=== PATIENT | male | born 1955 | race Caucasian/White ===

== ENCOUNTER → 2017-06-05 | Outpatient (CLI) | payer MEDICAID ==
[~2017-06-05] MED LIST: AMIODARONE 200200 MG PO; BISOPROLOL 5MG T5 MG PO; FUROSEMIDE40 MG PO; K-DUR 20MEQ TA20 MEQ PO; LISINOPRIL2.5 MG PO; PRAVACHOL 40MG40 MG PO; XARELTO10 MG PO
== END ==
LOC: LAB 13:47
DX: R63.1 Polydipsia (principal)